=== PATIENT | male | born 1960 | race Caucasian/White ===

== ENCOUNTER 2016-07-05 10:10 | Emergency (ER) | payer OTHER ==
[~2016-07-05] VITALS: Ht 177.8 cm; Wt 88.6 kg
[~2016-07-05 10:10] MED LIST: Aspirin PO; Keppra PO; LEVETIRACETAM750 MG PO; ZONISAMIDE100 MG PO; Zonegran PO; oxyCODONE PO
[2016-07-05] MEDS ORDERED: KEFLEX500 MG PO (13:23)
[2016-07-05 13:31] VITALS: BP 142/82
== END 2016-07-05 13:32 | disposition home or self-care (01) ==
LOC: EME 10:10
DX: S71.112A Laceration without foreign body, left thigh, initial encounter (principal); W29.8XXA Contact with other powered hand tools and household machinery, initial encounter; Z23 Encounter for immunization; R56.9 Unspecified convulsions
CPT/HCPCS: 73564; 99281; 99283

== ENCOUNTER 2016-07-05 14:42 | Emergency (ER) | payer OTHER ==
[~2016-07-05] VITALS: Ht 177.8 cm; Wt 87.4 kg
[~2016-07-05 14:42] MED LIST changes: +KEFLEX500 MG PO
[2016-07-05 15:53] VITALS: BP 118/85
== END 2016-07-05 15:55 | disposition home or self-care (01) ==
LOC: EME 14:42
PROC: 0HQJXZZ Repair Left Upper Leg Skin, External Approach (ICD-10-PCS; principal; 2016-07-05)
DX: S71.112A Laceration without foreign body, left thigh, initial encounter (principal); W45.8XXA Other foreign body or object entering through skin, initial encounter
CPT/HCPCS: 99281; 99284